=== PATIENT | female | born 1960 | race Caucasian/White ===

== ENCOUNTER 2019-09-13 10:07 | Emergency (ER) | payer OTHER ==
[~2019-09-13] VITALS: Ht 162.6 cm; Wt 66.2 kg
[2019-09-13] MEDS ORDERED: LAMICTAL XR300 MG PO (10:16)
[2019-09-13] MEDS ORDERED: ZOLOFT50 M1 PO (10:17)
[2019-09-13] MEDS ORDERED: TRIPLE ANTIBIOT28 G2 TOP (11:14)
[2019-09-13 11:29] VITALS: BP 110/74
== END 2019-09-13 11:30 | disposition home or self-care (01) ==
LOC: M.ERS 10:07
DX: T22.512A Corrosion of first degree of left forearm, initial encounter (principal); T22.53 Corrosion of first degree of upper arm; Z88.0 Allergy status to penicillin; T65.891A Toxic effect of other specified substances, accidental (unintentional), initial encounter; Y93.89 Activity, other specified; Y92.89 Other specified places as the place of occurrence of the external cause; Y99.0 Civilian activity done for income or pay